=== PATIENT | female | born 1945 | race Caucasian/White ===

== ENCOUNTER 2025-01-05 03:03 | Emergency (ER) | payer MEDICARE, SELFPAY ==
[2025-01-05] VITALS (16 sets, daily range): BP systolic 83–121; BP diastolic 47–58
[2025-01-05 03:38] LABS: COVID-19 Antigen Negative (Negative)
--- NOTE | 2025-01-05 04:25 | ED.GENMED ---
History of Present Illness
<EVA Wang - Last Filed: 01/05/25 05:28>
General
Chief Complaint: Abdominal Symptoms
Source: patient and records
Exam Limitations: none
Time Seen by Provider: 01/05/25 03:29
Nursing documentation reviewed up to this point in time: agreed with
History of Present Illness
History of Present Illness:
This patient is a 79 year old female with PMH of HTN, GERD, and small bowel obstruction secondary to obturator hernia that was surgically repaired at [facility] in August 2024. Patient subsequently underwent multiple exploratory laparoscopies
and small bowel resections complicated by wound dehiscence. She has been at [facility] for rehab for approximately one month. Staff requested patient to be transported to the ED for evaluation following abdominal pain, diarrhea, and hypotension.
Review of Systems
<EVA Wang - Last Filed: 01/05/25 05:28>
Review of Systems
Allergies reviewed?: Yes
All Other Systems: ROS reviewed and negative except as documented in HPI and ROS
Constitutional: Reports no symptoms
EENT: Reports no symptoms
Respiratory: Reports no symptoms
ABD/GI: Reports abdominal pain and diarrhea (prior to ED arrival)
: Reports no symptoms
Skin: Reports no symptoms
Neurological: Reports no symptoms
Hematologic/Lymphatic: Reports no symptoms
Phy Exam
<EVA Wang - Last Filed: 01/05/25 05:28>
General Physical Exam
General Presentation: no apparent distress
General age: appears stated age
General Skin: warm and dry
General Mental: alert
Cardiovascular Exam
Cardiovascular Exam: normal peripheral pulses
Pulmonary Exam
Pulmonary Exam: lungs clear
Gastrointestinal Exam
Gastrointestinal Exam: non tender and soft
External Findings: other (abdominal fistula)
Palpation: left upper quadrant: No tenderness, left lower quadrant: No tenderness, right upper quadrant: No tenderness and right lower quadrant: No tenderness
Musculoskeletal Exam
Musculoskeletal Exam: full ROM
Psychiatric Exam
Psychiatric Exam: normal mood/affect
Course
<Brooke Díaz [facility] - Last Filed: 01/05/25 05:28>
Orders/Labs/Results
Orders:
Orders
01/05/25 03:19
COVID-19 Antigen Urgent
Source: Nasal Swab
01/05/25 04:31
0.9% Sodium Chloride 1000 ml [Nss] 1,000 ml IV BOLUS
01/05/25 04:32
Urinalysis Reflex To Culture Urgent
01/05/25 04:34
Complete Blood Count/With Diff Urgent
Comprehensive Metabolic Panel Urgent
Lactic Acid Urgent
Lipase Urgent
01/05/25 04:42
Chest [CR Chest - 2 Views ] Urgent
Comment:
Reason For Exam: PICC
01/05/25 05:40
CT Abd/pelvis W Iv Cont Urgent
Comment:
Reason For Exam: abd pain, diarrhea. hx multiple bowel surgeries
01/05/25 06:56
KCl 40 Meq/0.9%Sodchl 1000 ml [NSS with KCL 40 MEQ] 40 meq in 1,000 ml IV 250 mls/hr
Abnormal Lab Results
01/05/25
04:34
RBC 3.32 L 10^6/uL
(4.20-5.40)
Hgb 10.3 L g/dL
(12.0-16.0)
Hct 31.4 L %
(37.0-47.0)
MCHC 32.8 L g/dL
(33.0-37.0)
Carbon Dioxide 35 H mmol/L
(22-30)
BUN 28 H mg/dl
(7-17)
Total Protein 6.1 L g/dl
(6.3-8.2)
Albumin 3.2 L g/dl
(3.5-5.0)
01/05/25 04:34
01/05/25 04:34
Vital Signs
Initial and Last Documented VS:
Initial Vital Signs
Temp Pulse Resp BP Pulse Ox
99.0 F 83 20 97/54 95
01/05/25 03:10 01/05/25 03:10 01/05/25 03:10 01/05/25 03:10 01/05/25 03:10
Last Documented Vital Signs
Temp Pulse Resp BP Pulse Ox
99.0 F 63 17 97/51 97
01/05/25 03:10 01/05/25 06:56 01/05/25 06:00 01/05/25 06:30 01/05/25 06:45
<Azeb Ordonez, DO - Last Filed: 01/05/25 07:35>
Orders/Labs/Results
Orders:
Orders
01/05/25 03:19
COVID-19 Antigen Urgent
Source: Nasal Swab
01/05/25 04:31
0.9% Sodium Chloride 1000 ml [Nss] 1,000 ml IV BOLUS
01/05/25 04:32
Urinalysis Reflex To Culture Urgent
01/05/25 04:34
Complete Blood Count/With Diff Urgent
Comprehensive Metabolic Panel Urgent
Lactic Acid Urgent
Lipase Urgent
01/05/25 04:42
Chest [CR Chest - 2 Views ] Urgent
Comment:
Reason For Exam: PICC
01/05/25 05:40
CT Abd/pelvis W Iv Cont Urgent
Comment:
Reason For Exam: abd pain, diarrhea. hx multiple bowel surgeries
01/05/25 06:56
KCl 40 Meq/0.9%Sodchl 1000 ml [NSS with KCL 40 MEQ] 40 meq in 1,000 ml IV 250 mls/hr
Abnormal Lab Results
01/05/25
04:34
RBC 3.32 L 10^6/uL
(4.20-5.40)
Hgb 10.3 L g/dL
(12.0-16.0)
Hct 31.4 L %
(37.0-47.0)
MCHC 32.8 L g/dL
(33.0-37.0)
Carbon Dioxide 35 H mmol/L
(22-30)
BUN 28 H mg/dl
(7-17)
Total Protein 6.1 L g/dl
(6.3-8.2)
Albumin 3.2 L g/dl
(3.5-5.0)
01/05/25 04:34
01/05/25 04:34
Vital Signs
Initial and Last Documented VS:
Initial Vital Signs
Temp Pulse Resp BP Pulse Ox
99.0 F 83 20 97/54 95
01/05/25 03:10 01/05/25 03:10 01/05/25 03:10 01/05/25 03:10 01/05/25 03:10
Last Documented Vital Signs
Temp Pulse Resp BP Pulse Ox
99.0 F 63 17 97/51 97
01/05/25 03:10 01/05/25 06:56 01/05/25 06:00 01/05/25 06:30 01/05/25 06:45
<EVA Wang - Last Filed: 01/05/25 05:28>
MDM/Problems Addressed
Differential Diagnosis Includes:
dehydration, bowel obstruction, hernia, gastroenteritits
Chronic conditions affecting care:
Midabdominal fistula
<Azeb Ordonez DO - Last Filed: 01/05/25 07:35>
MDM/Problems Addressed
Chronic conditions affecting care: Previous abdomnial surgery
<EVA Wang - Last Filed: 01/05/25 05:28>
*Pulse Oximetry
SaO2: 93
Oxygen Mode of Delivery: Room air
Patient hypoxic: no
*Critical Care Note
Total Time (30-74mins, 75-104mins- exclusive of procedures): Not Applicable
<Azeb Ordonez DO - Last Filed: 01/05/25 07:35>
*Radiology
Radiology exam reviewed: preliminary read by ED provider (Chest x-ray shows PICC line right upper extremity that ends at superior vena cava. Lungs are clear.)
ED Attending Note
<EVA Wang - Last Filed: 01/05/25 05:28>
-
Portions of this chart may have been created with voice recognition software.� Occasional wrong word or��sound alike� substitutions may have occurred due to the inherent limitations of voice recognition software.
<Azeb Ordonez DO - Last Filed: 01/05/25 07:35>
ED Attending Note
Patient seen and examined by attending physician: Yes
I performed the substantive portion of visit, reviewed & personally made and approve the management plan that is documented in note by myself or KELVIN.: Yes
ED Attending Note:
This is a 79-year-old woman who suffered a high-grade small bowel obstruction related to abdominal wall hernia, with lengthy, 2-month hospitalization at [facility] from mid August to mid October of this year. She underwent initial
exploratory laparotomy with small bowel resection, repair of hernia but then suffered postop complications, abdominal wall fistula formation, requiring multiple repeated abdominal surgeries. Eventually discharged mid October 2 long term facility
in [place]. 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 More recently she was transferred from long term facility in [place] to [facility] on
December 26. She was transferred to a residential closer to home so family could visit more easily. She remains on TPN from 8 PM to 8 AM. She continues with physical therapy and has been fairly independent with activities.
Yesterday however around 4 PM she developed generalized abdominal pain, nausea, dry heaves then developed diarrhea around 5 PM and reports passing multiple loose nonbloody stools for an hour to. Diarrhea resolved around 7:30 PM as did abdominal
pain. snf staff became concerned this morning however when patient became hypotensive. She has not had a fever. No return of abdominal pain nor nausea nor diarrhea. Persistent hypotension with systolic blood pressure in the 80s to 90s
despite TPN infusing. According to nurse her blood pressure generally runs 120-140 systolic.
Nurse is also concerned for minimal to no output from abdominal wall fistula over the past 24 hours. According to nurse the patient generally has a fair amount of drainage from the fistula.
Patient reports no history of similar episodes of diarrhea in the past. She has been abdominal pain-free since discharge in October. She currently feels well and is unsure why she was sent to the ED.
There has been no recent change in medications. No current antibiotics.
79-year-old woman appears her stated age, awake and alert, pleasant, appears in no acute distress. Mildly hypotensive with systolic blood pressure 88-90. Afebrile. Without tachycardia.
HEENT: Oral mucosa is mildly dry. Anicteric.
Neck is supple, nontender. No adenopathy. No JVD.
Heart is regular rate and rhythm.
Lungs are clear to auscultation, respirations are easy nonlabored.
Abdomen is soft, nondistended, nontender. Normoactive bowel sounds. There is an abdominal wall wound/fistula mid left abdomen with drainage apparatus/pouch in place. Drainage pouch is dry. Extremities without clubbing or cyanosis no edema.
Peripheral pulses are full and equal. Nontender.
Skin is warm and dry, normal color. Fair turgor.
No focal neurodeficits. Awake alert and oriented x 3.
Concern for acute dehydration, electrolyte abnormality, partial small bowel obstruction which has now resolved, acute gastroenteritis, colitis, sepsis.
It is reassuring that patient is pain-free and abdominal exam is soft benign.
Will check labs including lactic acid. Will initiate IV fluid bolus.
Will consider imaging depending on results and clinical course. Would likely consider CT abdomen and pelvis to assess for intra-abdominal fluid, bowel wall thickening such as colitis excetra.
Patient has had no further episodes of diarrhea since 7:30 PM. If diarrhea recurs will plan for stool cultures and stool for C. difficile.
Discharge Plan
Departure
Discharge Problem:
Acute diarrhea, acute abdominal pain-resolved
Prescriptions:
No Action
miconazole nitrate 2 % Aerosol Powder
1 spray TOPICAL BID
Rx Instructions:
Apply to skin folds to prevent rash every 12 hours
ondansetron HCl [Zofran] 4 mg Tablet
4 mg PO Q4H PRN (Reason: nausea/vomiting )
mirtazapine [Remeron] 30 mg Tablet
30 mg PO HS
simethicone 80 mg Tablet,Chewable
80 mg PO Q6 PRN (Reason: dyspepsia )
TPN Electrolytes 35-20-5 mEq/20 mL Solution
2,000 ml IV BID
lidocaine 4 % Adhesive Patch,Medicated
1 patch TOPICAL BID PRN (Reason: pain)
albuterol sulfate 2.5 mg /3 mL (0.083 %) Solution For Nebulization
2.5 mg INHALATION Q6H
sennosides [senna] 8.8 mg/5 mL Syrup
5 ml PO DAILY PRN (Reason: constipation)
citalopram [Celexa] 20 mg Tablet
20 mg PO DAILY
polyethylene glycol 3350 [Miralax] 17 gram/dose Powder
17 g PO DAILY PRN (Reason: constipation)
enoxaparin [Lovenox] 30 mg/0.3 mL Syringe
30 mg SC DAILY
Rx Instructions:
For 30 days ending 01/25/2025
benzocaine-glycerin 5-33 % [place],Non-Aerosol
1 spray MUCOUS MEMBRANE Q6 PRN (Reason: sore throat )
guaifenesin
10 ml PO Q12 PRN (Reason: cough)
acetaminophen 325 mg Tablet
650 mg PO Q4H PRN (Reason: mild pain/temp >101.0)
magnesium hydroxide 400 mg/5 mL Suspension
30 ml PO DAILY PRN (Reason: constipation )
Rx Instructions:
If no BM after 3 days
bisacodyl 10 mg Suppository
10 mg NH DAILY PRN (Reason: constipation)
Rx Instructions:
If no BM 24hrs after MOM
Fleet Enema 19-7 gram/118 mL Enema
118 ml NH ONCE PRN (Reason: constipation)
Rx Instructions:
if no BM in 24hrs after Bisacodyl supp
Referrals:
Oskar Castañeda MD [Family Provider] - Call in 1-3 days for appt
Interventions
Interventions:
*Risk Screen - Suicide Last Done: 01/05/25 03:10
*General Assessment Last Done: 01/05/25 03:10
*Neglect/Abuse Screening Last Done: 01/05/25 03:10
*ED- Fall Risk Assessment Last Done: 01/05/25 03:10
*ED COVID-19 Vaccine History Last Done: 01/05/25 03:50
GY-Msblpj-[id number] Assessment Last Done: 01/05/25 03:25
Discharge Date and Time
Print Language: ITALIAN
[2025-01-05 04:48] LABS: Hematocrit 31.4 % (37.0-47.0); Hemoglobin 10.3 g/dL (12.0-16.0); Mean Corp Hgb Conc. 32.8 g/dL (33.0-37.0); Mean Corpuscular Volume 94.6 fL (81.0-99.0); Nucleated Red Blood Cells % 0 %; Platelet Count 216 10^3/uL (130-400); Red Cell Dist. Width 14.0 % (11.5-14.5)
[2025-01-05 05:08] LABS: ALT (SGPT) 19 U/L (0-35); AST (SGOT) 21 U/L (14-36); Albumin 3.2 g/dl (3.5-5.0); Alkaline Phosphatase 78 U/L (38-126); Blood Urea Nitrogen 28 mg/dl (7-17); Calcium 8.9 mg/dl (8.4-10.2); Carbon Dioxide 35 mmol/L (22-30); Chloride 98 mmol/L (98-107); Estimated Creatinine Clearance 42 ml/min; Glucose 94 mg/dl (70-99); Lipase 25 U/L (23-300); Potassium 3.5 mmol/L (3.5-5.1); Sodium 139 mmol/L (135-145); Total Protein 6.1 g/dl (6.3-8.2); eGFR > 60.00
[2025-01-05] MEDS: NSS 1000 IV (05:09)
[2025-01-05] MEDS: NSS with KCL 40 MEQ 1000 IV (07:26)
== END 2025-01-05 12:40 | disposition home or self-care (01) ==
LOC: EMR 03:03
PROVIDERS: EMERGENCY PHYSICIAN Emergency Medicine; FAMILY PHYSICIAN Internal Medicine
DX: R19.7 Diarrhea, unspecified (principal); R10.9 Unspecified abdominal pain; I10 Essential (primary) hypertension; K63.89 Other specified diseases of intestine; Z90.49 Acquired absence of other specified parts of digestive tract
CPT/HCPCS: 96374; 96361; 99284; 71046; 74177; 80053; 83605; 83690; 85025; 87811; Q9967

== ENCOUNTER 2025-04-11 22:50 | Emergency (ER) | payer MEDICARE, OTHER, SELFPAY ==
[2025-04-11 22:54] VITALS: BP 131/52
[2025-04-11 22:58] VITALS: BMI 20.8
--- NOTE | 2025-04-11 23:57 | ED.GENMED ---
History of Present Illness
General
Chief Complaint: Vascular Access Problem
Source: patient, ambulance crew and longterm
Exam Limitations: none
Time Seen by Provider: 04/11/25 22:59
Nursing documentation reviewed up to this point in time: agreed with
History of Present Illness
History of Present Illness:
HISTORY OF PRESENT ILLNESS
The patient is a 79-year-old female who presented with concerns regarding the functionality of her PICC line. She is sent by nursing staff from [facility] due to concern for blocked PICC line. She has history of multiple abdominal
surgeries, small bowel obstructions with current fistula formation. She has been receiving total parenteral nutrition (TPN) through this line due to an inability to tolerate adequate oral intake. As of yesterday, she began clear liquid diet. Thus
far tolerating well. She has a history of multiple surgeries and has been residing at [facility] since June. She reports being able to currently tolerate clear liquids, including chicken broth and apple juice. According to the patient, prior to
tonight PICC line has been functioning well. No previous issues.
Overall feeling well. She offers no specific complaints.
Past History
Past History
ED Past Medical History: GERD, HTN and Other (Recurrent small bowel obstructions, intestinal fistula)
ED Past Surgical History: Appendectomy and Bowel resection (Multiple abdominal surgeries, lysis of adhesions, sigmoidectomy, hernia repair, small bowel repair.)
Social History
Tobacco: Non-smoker
Alcohol: None
Drug: None
Personal:
Living: longterm
Employment: Retired
Family History
Family History: Other (Noncontributory)
Phy Exam
Physical Exam
Physical Exam:
GENERAL: 79-year-old woman appears her stated age, bright and alert, pleasant, easily communicative and appears in no acute distress.
EYE: anicteric
NECK: Supple, nontender, no meningismus, no significant adenopathy.
ENT: oral mucosa is moist. No rhinorrhea.
CARDIAC: Regular rate and rhythm. no murmur.
LUNGS: Clear breath sounds bilaterally, no acute respiratory distress, no wheezes/rales/rhonchi
ABDOMEN: There is an ostomy bag mid abdomen draining yellowish thin liquid, the abdomen is soft, nondistended, without focal tenderness, no r/g, no cvat. normoactive BS.
NEUROLOGICAL: Alert and oriented x3, no focal neuro deficits. Gait is steady.
SKIN: Warm and dry, normal color, skin intact. No rash.
MUSCULOSKELETAL: No C/C/E. peripheral pulses are full and equal b/l. No palpable tenderness. Left upper arm PICC line insertion site. The site is clean and dry, no erythema, no drainage, no soft tissue swelling nor palpable tenderness.
PSYCH: Normal and appropriate interaction.
Course
Vital Signs
Initial and Last Documented VS:
Initial Vital Signs
Temp Pulse Resp BP Pulse Ox
98.2 F 61 18 131/52 99
04/11/25 22:54 04/11/25 22:54 04/11/25 22:54 04/11/25 22:54 04/11/25 22:54
Last Documented Vital Signs
Temp Pulse Resp BP Pulse Ox
98.2 F 61 18 131/52 99
04/11/25 22:54 04/11/25 22:54 04/11/25 22:54 04/11/25 22:54 04/11/25 22:54
MDM/Problems Addressed
Differential Diagnosis Includes:
DIFFERENTIAL DIAGNOSIS
The Differential Diagnosis includes, in no particular order and is not limited to:
1. PICC line occlusion
2. Infection related to PICC line
3. Mechanical issues with PICC line placement
4. Thrombosis related to PICC line
5. Malnutrition due to inadequate nutritional intake
6. Gastrointestinal complications from TPN
7. Electrolyte imbalance due to nutritional issues
8. Catheter-related infections
9. Psychological stress due to extended hospitalization
10. Impact of recent surgeries on nutritional and overall health status.
MDM/Problems Addressed:
Patient presents from longterm with concern for blocked PICC line.
Attended to by ED nurse who was able to successfully flush the PICC line. Initially somewhat difficult to flush but then after initial normal saline flush, now flushes easily without hesitancy, no bleeding.
PICC line site is clean and dry, no erythema, no soft tissue swelling nor tenderness.
At this point we will discharge back to longterm. PICC line is functioning well. No indication for radiologic studies nor laboratory studies.
Chronic conditions affecting care: HTN, Previous abdomnial surgery and Other (PICC line in place. Receives IV nutritional support)
*Pulse Oximetry
SaO2: 99
Oxygen Mode of Delivery: Room air
Patient hypoxic: no
*Critical Care Note
Total Time (30-74mins, 75-104mins- exclusive of procedures): Not Applicable
ED Attending Note
-
Portions of this chart may have been created with voice recognition software.� Occasional wrong word or��sound alike� substitutions may have occurred due to the inherent limitations of voice recognition software.
Discharge Plan
Departure
Patient Disposition: Retirement/SNF
Date of Disposition: 04/11/25
Time of Disposition: 23:15
Condition: Good
Discharge Problem:
Evaluation/care of PICC line
Instructions: How to care for a peripherally inserted central catheter (PICC)
Prescriptions:
No Action
miconazole nitrate 2 % Aerosol Powder
1 spray TOPICAL BID
Rx Instructions:
Apply to skin folds to prevent rash every 12 hours
ondansetron HCl [Zofran] 4 mg Tablet
4 mg PO Q4H PRN (Reason: nausea/vomiting )
mirtazapine [Remeron] 30 mg Tablet
30 mg PO HS
simethicone 80 mg Tablet,Chewable
80 mg PO Q6 PRN (Reason: dyspepsia )
TPN Electrolytes 35-20-5 mEq/20 mL Solution
2,000 ml IV BID
lidocaine 4 % Adhesive Patch,Medicated
1 patch TOPICAL BID PRN (Reason: pain)
albuterol sulfate 2.5 mg /3 mL (0.083 %) Solution For Nebulization
2.5 mg INHALATION Q6H
sennosides [senna] 8.8 mg/5 mL Syrup
5 ml PO DAILY PRN (Reason: constipation)
citalopram [Celexa] 20 mg Tablet
20 mg PO DAILY
polyethylene glycol 3350 [Miralax] 17 gram/dose Powder
17 g PO DAILY PRN (Reason: constipation)
enoxaparin [Lovenox] 30 mg/0.3 mL Syringe
30 mg SC DAILY
Rx Instructions:
For 30 days ending 01/25/2025
benzocaine-glycerin 5-33 % [place],Non-Aerosol
1 spray MUCOUS MEMBRANE Q6 PRN (Reason: sore throat )
guaifenesin
10 ml PO Q12 PRN (Reason: cough)
acetaminophen 325 mg Tablet
650 mg PO Q4H PRN (Reason: mild pain/temp >101.0)
magnesium hydroxide 400 mg/5 mL Suspension
30 ml PO DAILY PRN (Reason: constipation )
Rx Instructions:
If no BM after 3 days
bisacodyl 10 mg Suppository
10 mg [place] DAILY PRN (Reason: constipation)
Rx Instructions:
If no BM 24hrs after MOM
Fleet Enema 19-7 gram/118 mL Enema
118 ml [place] ONCE PRN (Reason: constipation)
Rx Instructions:
if no BM in 24hrs after Bisacodyl supp
Referrals:
Oskar Castañeda MD [Family Provider] - Call in 1-3 days for appt
Interventions
Interventions:
*General Assessment Last Done: 04/11/25 22:58
*Neglect/Abuse Screening Last Done: 04/11/25 22:58
*ED COVID-19 Vaccine History Last Done: 04/11/25 22:58
*ED Influenza Vaccine History Last Done: 04/11/25 22:58
[facility] Fall Risk Assessment Tool Last Done: 04/11/25 23:00
*Risk Screen - Suicide (C-SSRS) Last Done: 04/11/25 22:58
Discharge Date and Time
Print Language: UKRAINIAN
== END 2025-04-12 01:59 ==
LOC: EMR 22:50
PROVIDERS: EMERGENCY PHYSICIAN Emergency Medicine; FAMILY PHYSICIAN Internal Medicine
DX: Z45.2 Encounter for adjustment and management of vascular access device (principal); I10 Essential (primary) hypertension; K21.9 Gastro-esophageal reflux disease without esophagitis; Z90.49 Acquired absence of other specified parts of digestive tract
CPT/HCPCS: 99283